=== PATIENT | female | born 1955 | race Caucasian/White ===

== ENCOUNTER 2017-04-10 10:04 | Day surgery (SDC) | payer OTHER ==
--- NOTE | ~2017-04-10 | OP ---
Record Of Operation [facility] [address] [place]. [address] NAME: JENNI MUHAMMAD : 55 STATUS : REG [facility] [place] PAT#: [id number] AGE: 61 ADM/REG DATE : 04/10/17 MR#: [id number] REPORT SERV DATE: 04/10/17 DICTATED BY: DOREEN SHIN DATE: 04/10/17 REPORT STATUS : Draft TRANSCRIBED BY: MODL DATE: 04/10/17 DATE OF PROCEDURE: PROCEDURE PERFORMED: Fiberoptic bronchoscopy, bronchoscopy with bronchoalveolar lavage and transbronchial lung biopsies of two separate lobes. INDICATION: For interstitial lung disease with bronchiectasis. PREOPERATIVE DIAGNOSIS: For interstitial lung disease with bronchiectasis. POSTOPERATIVE DIAGNOSIS: Chronic bronchitis, interstitial lung disease, bronchiectasis. DESCRIPTION OF PROCEDURE: After risks and benefits were explained, informed consent was obtained. The patient received conscious sedation under care of Anesthesiology. The bronchoscope was inserted via the right nostril and advanced beyond the vocal cords without difficulty. The entire bronchial tree was inspected. There was some hyperemia throughout, slightly worse on the right than on the left, prominent on the right upper lobe, though all three segments of the right upper lobe were widely patent. The right lower lobe, superior segment bronchus takeoff was somewhat tighter, though there were again no endobronchial lesions. First order bronchi throughout the left were all patent. Following inspection, we performed bronchoalveolar lavage combining the return after flushing saline into the right middle lobe, right upper lobe, and right lower lobe. Following bronchoalveolar lavage, we performed transbronchial biopsies in the right upper lobe and right lower lobe under fluoroscopic guidance. On fluoroscopy, there was no evidence of pneumothorax, though chest radiograph is pending. IMPRESSION: Interstitial lung disease, bronchiectasis, chronic bronchitis, successful bronchoscopy. TANNA/CALEB Doreen Shin M.D. / [id number] CC: María Bell
[~2017-04-10 10:04] MED LIST: BREO ELLIPTA INH; CLARIT10 PO; LEVOTHYROXIN75 MCG PO; MAXZIDE PO; TOPXL25 PO; [UNRECOGNIZED DRUG - REMARK] PO
[2017-04-10 10:37] LABS: BUN (BLOOD UREA NITROGEN) 17 MG/DL (6-23); CALCIUM, SERUM 9.8 MG/DL (8.5-10.4); CHLORIDE, SERUM 101 MMOL/L (96-112); CO2 (CARBON DIOXIDE) 34 MMOL/L (24-34); GFR AFRICAN AMERICAN 63 ML/MIN (>=60); GFR NON AFRICAN AMERICAN 54 ML/MIN (>=60); GLUCOSE, SERUM 114 MG/DL (60-99); POTASSIUM, SERUM 4.7 MMOL/L (3.5-5.3); SODIUM, SERUM 139 MMOL/L (135-148)
[2017-04-10 14:41] LABS: BD FL LYMPH (NOT ORD) 10 %; BD FL SOURCE (NOT ORD) BAL; BF BASO (NOT OF) 1 %; BF LARGE MONONUCLEAR 85 %; BF TOTAL CELL CT (NOT ORD 249 /MM3; BODY FLUID EOS (NOT ORD) 0 %; BODY FLUID RBC (NOT ORD) 1000 /MM3; BODY FLUID SEG (NOT ORD) 4 %
[2017-06-10] MEDS ORDERED: LEVOTHYROXIN25 MCG PO (08:58)
[2017-06-10] MEDS ORDERED: SYN125 PO (09:00)
[2017-06-10] MEDS ORDERED: MAX25 PO (09:01)
[2017-06-10] MEDS ORDERED: SINGULAIR1 PO (09:01)
[2017-06-10] MEDS ORDERED: TOPXL50 PO (09:01)
[2017-06-12] MEDS ORDERED: BRILINTA90 MG PO (08:55)
== END 2017-04-10 23:59 | disposition home or self-care (01) ==
LOC: DMU 10:04
PROVIDERS: Anesthesiology; Internal Medicine Pulmonary Disease
PROC: 0B9D8ZZ Drainage of Right Middle Lung Lobe, Via Natural or Artificial Opening Endoscopic (ICD-10-PCS; 2017-04-10)
PROC: 0B9C8ZZ Drainage of Right Upper Lung Lobe, Via Natural or Artificial Opening Endoscopic (ICD-10-PCS; 2017-04-10)
PROC: 0B948ZX Drainage of Right Upper Lobe Bronchus, Via Natural or Artificial Opening Endoscopic, Diagnostic (ICD-10-PCS; principal; 2017-04-10 11:00)
PROC: 0B9F8ZX Drainage of Right Lower Lung Lobe, Via Natural or Artificial Opening Endoscopic, Diagnostic (ICD-10-PCS; 2017-04-10 11:00)
DX: J42 Unspecified chronic bronchitis (principal); J47.9 Bronchiectasis, uncomplicated; M26.69 Other specified disorders of temporomandibular joint; Z79.899 Other long term (current) drug therapy; R05 Cough; J98.4 Other disorders of lung
CPT/HCPCS: 71010; 80048; 87015; 87070; 87102; 87116; 87205; 88112; 88305; 89051; 93005

== ENCOUNTER 2017-05-03 14:39 | Observation (INO) | payer OTHER ==
--- NOTE | ~2017-05-03 | HP ---
History And Physical [facility] [id number] [place]. [address] NAME: JENNI MUHAMMAD : 55 STATUS : ADM Sabine PAT#: [id number] AGE: 61 ADM/REG DATE : 05/03/17 MR#: [id number] REPORT SERV DATE: 05/04/17 DICTATED BY: ALBERT PRECIADO DATE: 05/04/17 REPORT STATUS : Draft TRANSCRIBED BY: CALEB DATE: 05/04/17 DATE OF ADMISSION: 05/03/2017 TWIST PACKER: Corby Shin M.D. CHIEF COMPLAINT: Atypical chest pain. HISTORY OF PRESENT ILLNESS: A very pleasant, 61-year-old white female with no known history of CAD, states that on 05/03/2017 around 1130 hours, she experienced left-sided jaw pain, left ear discomfort that radiated down into her left neck and clavicle. She describes the discomfort as a pressure in her throat and a heaviness in her chest, which is questionably unchanged secondary to a chronic cough for approximately one year, currently followed by Dr. Shin. She reports some associated nausea. Denies shortness of breath, diaphoresis, dizziness, or belching. 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 At its most intense, she rated her right neck discomfort as 7/10. At time of interview in the CPOU, she rates it a 5/10. States it was improved with Percocet and seemingly is aggravated with palpation and movement. The patient denies any personal history of myocardial infarction, stroke, DVT, or pulmonary embolus. The patient denies any recent fever or chills, no palpitations, no syncopal events. Denies PND or orthopnea. The patient states that she had sudden appearance of "blood blisters on the palm of her right hand around the ventral surface of her right hand indicating between her three middle fingers and along the path of her distal fingers. These are now resolved or resolving with some very faint erythema areas noted, but no blisters or fluid-filled vesicles, and no blood pockets visualized. The patient denies any change in activity. No strenuous work with mattock or shovel. Denies any wearing of new gloves or gardening gloves on her right hand. These blisters do not appear on her left hand. PAST MEDICAL HISTORY: 1. Dyslipidemia per report. To follow up with her PCP on 05/14/2017. 2. Hypothyroid on replacement. 3. Chronic cough. Followed by Dr. Shin with recent bronchoscopy on 04/10/2017. 4. History of Hodgkin lymphoma. Treated with radiation with 20 plus years remission. 5. Positive family history for early CAD. PAST SURGICAL HISTORY: 1. Hysterectomy. 2. Splenectomy. 3. Left tibial fracture. 4. Right knee surgery. 5. Appendectomy. 6. Cholecystectomy. SOCIAL HISTORY: She is with three children living, one child drowned at the age of History And Physical [address] [address] NAME: JENNI MUHAMMAD : 55 STATUS : ADM Sabine PAT#: [id number] AGE: 61 ADM/REG DATE : 05/03/17 MR#: [id number] REPORT SERV DATE: 05/04/17 DICTATED BY: ALBERT PRECIADO DATE: 05/04/17 REPORT STATUS : Draft TRANSCRIBED BY: MODCandie DATE: 05/04/17 18 months. 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 Does not have a structured exercise routine. Denies tobacco. Occasionally, consumes alcohol. Denies illicits. FAMILY HISTORY: Mother at 74 of congestive heart failure. Father with a heart attack and stroke at 55, at 59 with a history of Hodgkin lymphoma. REVIEW OF SYSTEMS: A 14-point review of systems performed, significant for HPI. No other contributory diagnoses identified. ALLERGIES: NO KNOWN DRUG ALLERGIES. HOME MEDICINES: Albuterol p.r.n., levothyroxine 75 mcg daily, Claritin 10 mg daily, metoprolol succinate 25 mg daily, Prilosec 20 mg daily p.r.n., Maxzide 50 mg daily for edema, Excedrin p.r.n., and Aleve p.r.n. PHYSICAL EXAMINATION: VITAL SIGNS: Bilateral blood pressures on arrival, right 140/85 and left 131/80, pulse 75, respirations 16, temperature 97.9, O2 saturation 94% on room air. Height 5 feet 4 inches. Weight 179 pounds. BMI 31. GENERAL: Cooperative, in no apparent distress. Dry cough. HEENT: Pupils 2 mm, sclera nonicteric. Nares patent. Moist mucous membranes. No xanthelasma. NECK: Trachea midline, no thyromegaly. No JVD. No bruits. Left ache, increased with movement. LYMPH: No cervical lymphadenopathy. No supraclavicular lymphadenopathy. RESPIRATORY: Unlabored respirations. Breath sounds clear bilaterally to posterior auscultation. No wheezes or rhonchi. CARDIOVASCULAR: Regular rate. No murmur, rub or gallop appreciated. Extremities without edema. Pulses 2+ bilaterally. ABDOMEN: Soft, nontender, nondistended, normal bowel sounds auscultated throughout. No organomegaly. SKIN: Warm, dry extremities. No pallor, or cyanosis. PSYCHIATRIC: Appropriate affect. Alert, oriented x3. LABORATORY DATA: Troponin less than 0.02 twice. Potassium 3.8 (initially 2.9), BUN 15, creatinine 1.13, glucose 118, magnesium 2.2. BNP 56.0. WBC 12.9, hemoglobin 14.1, hematocrit 41.3, platelet count 467,000. IMAGING: EKG: Sinus rhythm, PRWP. CTA of the neck without contrast: No suspicious cervical adenopathy or soft tissue mass. Multinodular thyroid gland pattern, largest hypodense nodule left lobe measuring 7 x 9 mm. Recommend follow up outpatient thyroid ultrasound exam. Biapical chronic-appearing pleural parenchymal fibrosis pattern. Otherwise, unremarkable CT of the neck. ASSESSMENT AND PLAN: 1. Left neck discomfort. The patient has been observed in the CPOU overnight to rule out History And Physical [address] [address] NAME: JENNI MUHAMMAD : 55 STATUS : ADM Sabine PAT#: [id number] AGE: 61 ADM/REG DATE : 05/03/17 MR#: [id number] REPORT SERV DATE: 05/04/17 DICTATED BY: ALBERT PRECIADO DATE: 05/04/17 REPORT STATUS : Draft TRANSCRIBED BY: MODL DATE: 05/04/17 myocardial infarction, serial enzymes negative, EKG appears stable. N.p.o. for MPI today. The patient will be discharged home if negative study. Of note, the patient underwent CT imaging of her neck, essentially negative with multinodular thyroid gland noted with recommendation for followup outpatient thyroid ultrasound. The patient will follow up with PCP for further outpatient testing. 2. CT of neck with thyroid nodular pattern. 3. Recommend outpatient thyroid ultrasound for further delineation. 4. Dyslipidemia per the patient's report. Follow up with PCP on 05/14/2017 as scheduled. 5. Chronic cough. Recent bronchoscopy 04/10/2017. The patient has followup arranged with Dr. Shin 06/29/2017 to discuss any pathology found. 6. Blisters, right palm, improved. Follow up with PCP. No change in activity or exposure to her right hand identified. 7. Hypokalemia. Initially 2.9, repleted per protocol, now 3.8. DAVID/CLAEB LOKI Garcia, [employer] BU[employer] RE[employer]IRER-BC / [id number] CC: LOKI Garcia, BOAT BU[employer]DER AND REPAIRER-BC Edwin Nelson M.D.
[2017-05-03 15:01] LABS: BASOPHILS 0.5 %; BASOPHILS ABSOLUTE 0.07 10/3/uL (0.0-0.16); EOSINOPHILS 4.3 %; EOSINOPHILS ABSOLUTE 0.55 10/3/uL (0.0-0.53); HEMATOCRIT 41.3 % (36.0-48.0); HEMOGLOBIN 14.1 g/dL (12.0-16.0); IMMATURE GRANULOCYTES 0.2 %; IMMATURE GRANULOCYTES ABSOLUTE 0.03 10/3/uL (0.0-0.11); LYMPHOCYTES ABSOLUTE 4.53 10/3/uL (0.67-4.30); MEAN CORPUS HGB CONC 34.1 g/dL (32.0-36.0); MEAN CORPUSCULAR HEMOGLOB 30.3 pg (26.0-34.0); MEAN CORPUSCULAR VOLUME 88.6 fL (80-100); MEAN PLATELET VOLUME 11.2 fL (9.2-13.0); MONOCYTES 8.9 %; MONOCYTES ABSOLUTE 1.15 10/3/uL (0.21-1.20); NEUTROPHILS 51.1 %; NEUTROPHILS ABSOLUTE 6.61 10/3/uL (2.02-8.40); PLATELET COUNT 467 10/3/uL (150-400); RBC DISTRIBUTION WIDTH 13.8 % (12.0-16.0); RED CELL COUNT 4.66 10/6/uL (4.0-5.6); WHITE BLOOD CELLS 12.9 10/3/uL (4.5-10.5)
[2017-05-03 15:06] LABS: MANUAL DIFF NO %
[2017-05-03 15:10] LABS: PARTIAL THROMBO TIME 23.1 SEC (22.5-37.2); PROTIME (NOT ORD) 12.8 SEC (12.0-14.5)
[2017-05-03 15:19] LABS: BUN (BLOOD UREA NITROGEN) 15 MG/DL (6-23); CALCIUM, SERUM 9.4 MG/DL (8.5-10.4); CHEST PAIN PROFILE TAT 0 Hrs 22 Mins; CHLORIDE, SERUM 100 MMOL/L (96-112); CREATININE 1.13 MG/DL (0.55-1.02); GFR AFRICAN AMERICAN 61 ML/MIN (>=60); GFR NON AFRICAN AMERICAN 52 ML/MIN (>=60); GLUCOSE, SERUM 118 MG/DL (60-99); SODIUM, SERUM 137 MMOL/L (135-148); TROPONIN I <0.02 NG/ML (<0.05)
[2017-05-03 15:22] LABS: CO2 (CARBON DIOXIDE) 29 MMOL/L (24-34); POTASSIUM, SERUM 2.9 MMOL/L (3.5-5.3)
[2017-05-03] MEDS ORDERED: PROAIR HFA INH (19:14)
[2017-05-03] MEDS ORDERED: PRILOSEC OTC20 MG PO (19:14)
[2017-05-03 23:47] LABS: TROPONIN I <0.02 NG/ML (<0.05)
[2017-05-03 23:48] LABS: POTASSIUM, SERUM 3.6 MMOL/L (3.5-5.3)
[2017-05-04 16:17] LABS: BASOPHILS 0.6 %; BASOPHILS ABSOLUTE 0.07 10/3/uL (0.0-0.16); EOSINOPHILS 5.2 %; EOSINOPHILS ABSOLUTE 0.65 10/3/uL (0.0-0.53); HEMATOCRIT 41.6 % (36.0-48.0); IMMATURE GRANULOCYTES 0.4 %; IMMATURE GRANULOCYTES ABSOLUTE 0.05 10/3/uL (0.0-0.11); LYMPHOCYTES 28.4 %; LYMPHOCYTES ABSOLUTE 3.53 10/3/uL (0.67-4.30); MEAN CORPUS HGB CONC 33.7 g/dL (32.0-36.0); MEAN CORPUSCULAR HEMOGLOB 30.3 pg (26.0-34.0); MEAN PLATELET VOLUME 11.3 fL (9.2-13.0); MONOCYTES 9.2 %; MONOCYTES ABSOLUTE 1.14 10/3/uL (0.21-1.20); NEUTROPHILS 56.2 %; NEUTROPHILS ABSOLUTE 6.97 10/3/uL (2.02-8.40); PLATELET COUNT 475 10/3/uL (150-400); RBC DISTRIBUTION WIDTH 14.2 % (12.0-16.0); RED CELL COUNT 4.62 10/6/uL (4.0-5.6); WHITE BLOOD CELLS 12.4 10/3/uL (4.5-10.5)
[2017-05-04 16:20] LABS: MANUAL DIFF NO %
[2017-05-04 16:25] LABS: BUN (BLOOD UREA NITROGEN) 14 MG/DL (6-23); CHLORIDE, SERUM 103 MMOL/L (96-112); CO2 (CARBON DIOXIDE) 29 MMOL/L (24-34); CREATININE 1.14 MG/DL (0.55-1.02); GFR AFRICAN AMERICAN 60 ML/MIN (>=60); GFR NON AFRICAN AMERICAN 52 ML/MIN (>=60); POTASSIUM, SERUM 4.1 MMOL/L (3.5-5.3); SODIUM, SERUM 137 MMOL/L (135-148)
[2017-05-04 16:26] LABS: GLUCOSE, SERUM 167 MG/DL (60-99)
[2017-05-05 05:14] LABS: BASOPHILS 0.5 %; BASOPHILS ABSOLUTE 0.07 10/3/uL (0.0-0.16); EOSINOPHILS 5.5 %; EOSINOPHILS ABSOLUTE 0.73 10/3/uL (0.0-0.53); HEMATOCRIT 40.9 % (36.0-48.0); HEMOGLOBIN 13.6 g/dL (12.0-16.0); IMMATURE GRANULOCYTES 0.5 %; IMMATURE GRANULOCYTES ABSOLUTE 0.06 10/3/uL (0.0-0.11); LYMPHOCYTES 25.3 %; LYMPHOCYTES ABSOLUTE 3.36 10/3/uL (0.67-4.30); MANUAL DIFF NO %; MEAN CORPUS HGB CONC 33.3 g/dL (32.0-36.0); MEAN CORPUSCULAR HEMOGLOB 30.2 pg (26.0-34.0); MEAN CORPUSCULAR VOLUME 90.7 fL (80-100); MEAN PLATELET VOLUME 11.9 fL (9.2-13.0); MONOCYTES 10.2 %; MONOCYTES ABSOLUTE 1.35 10/3/uL (0.21-1.20); NEUTROPHILS ABSOLUTE 7.69 10/3/uL (2.02-8.40); PLATELET COUNT 483 10/3/uL (150-400); RED CELL COUNT 4.51 10/6/uL (4.0-5.6); WHITE BLOOD CELLS 13.3 10/3/uL (4.5-10.5)
[2017-05-05 05:23] LABS: BUN (BLOOD UREA NITROGEN) 14 MG/DL (6-23); CHLORIDE, SERUM 107 MMOL/L (96-112); CO2 (CARBON DIOXIDE) 28 MMOL/L (24-34); CREATININE 1.07 MG/DL (0.55-1.02); GFR AFRICAN AMERICAN 65 ML/MIN (>=60); GFR NON AFRICAN AMERICAN 56 ML/MIN (>=60); POTASSIUM, SERUM 4.1 MMOL/L (3.5-5.3); SODIUM, SERUM 140 MMOL/L (135-148)
[2017-05-05 05:26] LABS: GLUCOSE, SERUM 109 MG/DL (60-99)
[2017-05-05 11:19] LABS: CHOL/HDL RATIO(NOT ORDER) 5.3 (0-5); CHOLESTEROL 240 MG/DL (< 200); HDL CHOLESTEROL 45 MG/DL (> 49); LDL CHOLESTEROL 158 MG/DL (< 130); NON-HDL CHOLESTEROL 195 MG/DL (< 160); TRIGLYCERIDE 186 MG/DL (< 150)
[2017-05-05] MEDS ORDERED: ASAB PO (13:51)
[2017-05-05] MEDS ORDERED: LIPITOR40 PO (13:53)
[2017-05-05] MEDS ORDERED: NORV25 PO (13:56)
[2017-05-05] MEDS ORDERED: NTG150 SL (13:57)
[2017-06-10] MEDS ORDERED: LEVOTHYROXIN25 MCG PO (08:58)
[2017-06-10] MEDS ORDERED: SYN125 PO (09:00)
[2017-06-10] MEDS ORDERED: SINGULAIR1 PO (09:01)
[2017-06-10] MEDS ORDERED: TOPXL50 PO (09:01)
[2017-06-10] MEDS ORDERED: MAX25 PO (09:01)
[2017-06-12] MEDS ORDERED: BRILINTA90 MG PO (08:55)
== END 2017-05-05 14:38 | disposition home or self-care (01) ==
LOC: ER 14:39 → CDU1 21:55 → CDU2 22:48
PROVIDERS: Clinical Nurse Specialist; Emergency Medicine
DX: I25.110 Atherosclerotic heart disease of native coronary artery with unstable angina pectoris (principal); E78.5 Hyperlipidemia, unspecified; E03.9 Hypothyroidism, unspecified; E87.6 Hypokalemia; Z82.49 Family history of ischemic heart disease and other diseases of the circulatory system; Z90.710 Acquired absence of both cervix and uterus; Z90.49 Acquired absence of other specified parts of digestive tract; Z98.890 Other specified postprocedural states; Z90.81 Acquired absence of spleen; Z82.3 Family history of stroke; Z79.899 Other long term (current) drug therapy; Z96.651 Presence of right artificial knee joint
CPT/HCPCS: 70490; 71020; 78452; 80048; 80061; 83735; 83880; 84132; 84484; 85025; 85610; 85730; 93005; 93017; 93458; 99152; 99153; 99285; A9270-GY; A9502; C1769; C1887; C1894; G0378; J0153; J2250; J3010; Q9967